=== PATIENT | male | born 1990 | race Caucasian/White ===

== ENCOUNTER 2023-04-27 18:51 | Emergency (ER) | payer OTHER, SELFPAY ==
--- NOTE | ~2023-04-27 | XR_ITS ---
EXAMINATION: XR chest 2V 04/27/2023 19:23 INDICATION: Chest pain and palpitations PROCEDURE: 2 view chest COMPARISON: No prior studies for comparison. FINDINGS: The lungs are clear. The cardiomediastinal silhouette is within normal limits. There are no pleural effusions. There is no pneumothorax suspected. IMPRESSION: 1: NO ACUTE CARDIOPULMONARY DISEASE. Reviewed, dictated and finalized at location A.
[2023-04-27 19:00] VITALS: BP 115/61; PULSE 97; RESP 16; TEMP 36.7; O2SAT 98
--- NOTE | 2023-04-27 19:05 | ECG_ITS ---
Measurements Intervals [place] Rate: 106 P: 76 WI: 151 QRS: 89 QRSD: 113 T: 59 QT: 301 QTc: 401 Interpretive Statements SINUS TACHYCARDIA POSSIBLE LEFT ATRIAL ENLARGEMENT INCOMPLETE RIGHT BUNDLE BRANCH BLOCK ST ABNORMALITY IN INFERIOR LEADS- CONSIDER ISCHEMIA ABNORMAL ECG NO PREVIOUS ECG AVAILABLE FOR COMPARISON Electronically Signed On 04-28-2023 7:57:21 CDT by Vincenzo Floyd D.O.
[2023-04-27 19:20] LABS: Basophils Absolute Auto 0.1 K/mm3 (0.0-0.1); Basophils Percent Auto 0.7 % (0.2-1.2); Eosinophils Absolute Auto 0.2 K/mm3 (0-0.3); Eosinophils Percent Auto 2.6 % (0-4.4); Hematocrit 40.8 % (42.0-52.0); Hemoglobin 14.1 g/dL (14.0-18.0); Immature Granulocyte Absolute 0.01 K/mm3 (0.00-0.031); Immature Granulocyte Percent A 0.1 % (0-0.5); Lymphocytes Absolute Auto 3.15 K/mm3 (0.9-3.2); Lymphocytes Percent Auto 35.4 % (18.3-44.2); Mean Corpuscular HGB Conc 34.6 g/dl (32-36); Mean Corpuscular Hemoglobin 30.5 pg (26-34); Mean Corpuscular Volume 88.1 fl (80-100); Mean Platelet Volume 9.8 fl (7.4-10.4); Monocytes Absolute Auto 0.5 K/mm3 (0.1-0.6); Monocytes Percent Auto 5.6 % (2.6-8.5); Neutrophils Percent Auto 55.6 % (45.5-73.1); Platelet Count Result 320 k/mm3 (150-375); Red Blood Count 4.63 M/mm3 (4.6-6.20); Red Cell Distribution Width 13.3 % (11.5-14.5); White Blood Count 8.9 K/mm3 (4.5-10.0)
[2023-04-27 19:31] LABS: INR 1.1; Partial Thromboplastin Time 30.8 SECONDS (22.3-36.8); Prothrombin Time 14.4 Seconds (11.1-14.7)
[2023-04-27 19:33] LABS: Alanine Aminotransferase 19 U/L (6-50); Albumin Level 4.8 g/dL (3.5-5.1); Alkaline Phosphatase 58 U/L (38-126); Anion Gap 10 mmol/L (8-16); Aspartate Amino Transferase 26 U/L (17-59); Bilirubin,Total 0.7 mg/dL (0.2-1.3); Blood Urea Nitrogen 18 mg/dL (9-20); Calcium 9.4 mg/dL (8.4-10.2); Carbon Dioxide 26 mmol/L (22-30); Chloride 103 mmol/L (98-107); Estimated CRCL calculation 110 ml/min; Estimated Glomerular Filt Rate > 60; Glucose 94 mg/dL (65-110); Lipase 99 U/L (23-300); Potassium 3.5 mmol/L (3.4-5.0); Sodium 139 mmol/L (137-145)
[2023-04-27 19:42] LABS: Troponin I < 0.012 ng/mL (0.000-0.034)
[2023-04-27 22:46] LABS: Ethanol < 10 mg/dL (<10)
[2023-04-27] MEDS: Please add drug allergy info to patient profile. 1 EACH XX (22:51)
--- NOTE | 2023-04-27 23:10 | PC.NURSE ---
this RN assumed care of patient. This RN took patient report from JANES Johnston.
--- NOTE | 2023-04-27 23:16 | ED.GENADULT ---
HPI - General Adult General Chief complaint: Chest Pain Stated complaint: cp/shaking/numb fingers Time Seen by Provider: 04/27/23 22:48 History of Present Illness HPI narrative: This is a 33-year-old male with a history of anxiety attacks presenting with chest pain. Patient says that while he was watching TV at 6:00 p.m. he started to have a stabbing/ achy pain in the parasternal area of his chest. It spread and radiated across his chest. he was so seated with perioral tingling, tingling in his hands and feet. The symptoms improved without intervention. Patient says he has anxiety attack 5 years ago which were consistent with a tingling but not with the chest pain. the chest pain has resolved and he is pain-free at this time. Related Data Allergies Allergy/AdvReac Type Severity Reaction Status Date / Time No Known Allergies Allergy Verified 04/27/23 22:49 Exam Narrative: APPEARANCE: No apparent distress. Head: atraumatic. EYES: EOMI, NOSE: Atraumatic NECK: Trachea midline RESPIRATORY: No increased rate of breathing Clear to auscultation CARDIOVASCULAR: RRR, no peripheral edema, no chest wall pain ABDOMINAL: Non-distended MUSCULOSKELETAl: No obvious deformities NEURO: Alert. Moving 4/4 extremities SKIN:: Warm, dry. Normal color PSYCHIATRIC: Normal affect Course Vital Signs Vital signs: Vital Signs Temperature 98.1 F 04/27/23 19:00 Pulse Rate 97 04/27/23 19:00 Respiratory Rate 16 04/27/23 19:00 Blood Pressure 115/61 04/27/23 19:00 Pulse Oximetry 98 04/27/23 19:00 Oxygen Delivery Room Air 04/27/23 19:00 Temperature 98.1 F 04/27/23 19:00 Pulse Rate 97 04/27/23 19:00 Respiratory Rate 16 04/27/23 19:00 Blood Pressure 115/61 04/27/23 19:00 Pulse Oximetry 98 04/27/23 19:00 Oxygen Delivery Room Air 04/27/23 19:00 Medical Decision Making [facility] Narrative Medical decision making narrative: -Course: 33-year-old male with history of anxiety attacks and no other past medical history presenting with chest pain, perioral tingling and tingling in his hands and feet. initial troponin was undetectable. The patient's condition improved. He did not want to wait for a 2nd troponin. Currently pain-free. Heart score <4. Consists presentation is most consistent with anxiety. patient is comfortable following with primary care physician. Return precautions for chest pain given. -DDX includes but is not limited to: Anxiety, panic disorder, substance use disorder, presyncope, ACS pneumonia pneumothorax -Co-morbidities complicating care: history of anxiety attack -Social determinants of health: works as a cable tech for [employer], lives with his -Hx from independent Sources: at bedside -Independent interpretation of studies: CBC BMP and troponin negative. Chest x-ray negative. Independent EKG interpretation: Rhythm Sinus tach, Rate [106], [place] -[normal], [place] -[normal], QRS [narrow], QTC [normal], T waves -[negative for concerning inversions], ST Segments - [Negative for concerning elevations] Final interpretations: Sinus tachycardia -Shared decision making / Disposition:discharged Vital Signs Vital Signs: Vital Signs Temperature 98.1 F 04/27/23 19:00 Pulse Rate 97 04/27/23 19:00 Respiratory Rate 16 04/27/23 19:00 Blood Pressure 115/61 04/27/23 19:00 Pulse Oximetry 98 04/27/23 19:00 Oxygen Delivery Room Air 04/27/23 19:00 Temperature 98.1 F 04/27/23 19:00 Pulse Rate 97 04/27/23 19:00 Respiratory Rate 16 04/27/23 19:00 Blood Pressure 115/61 04/27/23 19:00 Pulse Oximetry 98 04/27/23 19:00 Oxygen Delivery Room Air 04/27/23 19:00 Lab Data 04/27/23 19:13 04/27/23 19:13 Labs: Lab Results 04/27/23 Range/Units 19:13 WBC 8.9 (4.5-10.0) K/mm3 RBC 4.63 (4.6-6.20) M/mm3 Hgb 14.1 (14.0-18.0) g/dL Hct 40.8 L (42.0-52.0) % MCV 88.1 (80-100) fl MCH 30.5 (26-
[2023-04-27 23:35] VITALS: O2SAT 98
== END 2023-04-27 23:44 | disposition home or self-care (01) ==
PROVIDERS: Emergency Medicine; Emergency Provider Emergency Medicine
DX: R07.9 Chest pain, unspecified (principal); R94.31 Abnormal electrocardiogram [ECG] [EKG]; R00.0 Tachycardia, unspecified
CPT/HCPCS: 36415; 71046; 80053; 80307; 83690; 84484; 85025; 85610; 85730; 93005; 99284